=== PATIENT | male | born 1995 | race Caucasian/White ===

== ENCOUNTER 2019-11-22 19:08 | Emergency (ER) | payer OTHER ==
--- NOTE | 2019-11-22 19:23 | ER Document Report ---
ED Medical Screen (RME) - General Chief Complaint: Arm Injury Stated Complaint: RIGHT ARM LACERATION Time Seen by Provider: 11/22/19 19:20 Mode of Arrival: Wheelchair Information source: Patient Notes: 24-year-old male presented to ED for for large laceration to the right forearm after he punched a glass wall. He will be sent x-ray to ensure there is no glass in the wound and then he will be seen by another provider to suture his laceration. Is alert oriented respirations regular nonlabored speaking in full sentences. He refused Tylenol or any other medications at this time. 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 I have greeted and performed a rapid initial assessment of this patient. A comprehensive ED assessment and evaluation of the patient, analysis of test results and completion of medical decision making process will be conducted by an additional ED providers.
--- NOTE | 2019-11-22 20:04 | RADIOLOGY REPORT (SQ) ---
EXAM DESCRIPTION: FOREARM RIGHT IMAGES COMPLETED DATE/TIME: 11/22/2019 6:48 pm REASON FOR STUDY: Laceration after punching glass wall COMPARISON: None. NUMBER OF VIEWS: Two views. TECHNIQUE: Two radiographic images acquired of the right forearm, including elbow and wrist in at le ast one projection. LIMITATIONS: None. FINDINGS: MINERALIZATION: Normal. BONES: No acute fracture. No worrisome bone lesions. SOFT TISSUES: There are multiple rectangular lucencies measuring up to 9 mm in size within the subcut aneous soft tissues. Laceration over the posterior forearm. OTHER: No other significant finding. IMPRESSION: Multiple subcutaneous foreign bodies, probably glass fragments. Laceration over the pos terior forearm. No underlying fracture. TECHNICAL DOCUMENTATION: JOB ID: [id number] 2010 [employer]- All Rights Reserved Reading location - IP/workstation name: [email or web address]
[2019-11-22] MEDS ORDERED: LIDOCAINE 1% INJ-PF (10 MG/ML) 30 ML SDV INJ ONE (22:15)
--- NOTE | 2019-11-22 22:26 | ER Document Report ---
ED Extremity Problem, Upper - General Chief Complaint: Arm Injury Stated Complaint: RIGHT ARM LACERATION Time Seen by Provider: 11/22/19 19:20 Primary Care Provider: MISHA ALLEN PA [Primary Care Provider] - 11/24/19 Mode of Arrival: Wheelchair Information source: Patient Notes: 24-year-old male presented to ED for large laceration to the right forearm. He states he punched a glass wall. He stated that his tetanus is up-to-date. He is alert oriented respirations regular nonlabored speaking in full sentences. He states the pain was not such that he needed any medication at this time. He is active duty . - HPI Patient complains to provider of: Injury, Pain - Laceration, Right, Forearm Onset: Just prior to arrival Recent injury: Yes Quality of pain: Sharp Severity of pain: Mild Pain Level: 1 Context: Other - Laceration Associated symptoms: None Exacerbated by: Movement Relieved by: Nothing Similar symptoms previously: Yes Recently seen / treated by doctor: No - Related Data Allergies/Adverse Reactions: No Known Allergies Allergy (Verified 11/22/19 19:24) Past Medical History - General Information source: Patient - Social History Smoking Status: Never Smoker Chew tobacco use (# tins/day): No Frequency of alcohol use: Social Drug Abuse: None Occupation: Duty Lives with: Spouse/Significant other Family History: Reviewed & Not Pertinent Patient has homicidal ideation: No - Past Medical History Cardiac Medical History: Reports: None Pulmonary Medical History: Reports: None EENT Medical History: Reports: None Neurological Medical History: Reports: None Endocrine Medical History: Reports: None Renal/ Medical History: Reports: None Malignancy Medical History: Reports None GI Medical History: Reports: None Musculoskeletal Medical History: Reports None Skin Medical History: Reports None Psychiatric Medical History: Reports: None Traumatic Medical History: Reports: None Infectious Medical History: Reports: None Surgical Hx: Negative Past Surgical History: Reports: None - Immunizations Immunizations up to date: Yes Hx Diphtheria, Pertussis, Tetanus Vaccination: Yes Review of Systems - Review of Systems Constitutional: No symptoms reported EENT: No symptoms reported Cardiovascular: No symptoms reported Respiratory: No symptoms reported Gastrointestinal: No symptoms reported Genitourinary: No symptoms reported Male Genitourinary: No symptoms reported Musculoskeletal: No symptoms reported Skin: Other - Laceration right forearm Hematologic/Lymphatic: No symptoms reported Neurological/Psychological: No symptoms reported Physical Exam - Vital signs Vitals: Temp 98.3 F 11/22/19 19:13 Interpretation: Normal - General General appearance: Appears well, Alert - HEENT Head: Normocephalic, Atraumatic Eyes: Normal Pupils: PERRL - Respiratory Respiratory status: No respiratory distress Chest status: Nontender Breath sounds: Normal Chest palpation: Normal - Cardiovascular Rhythm: Regular Heart sounds: Normal auscultation Murmur: No - Abdominal Inspection: Normal Distension: No distension Bowel sounds: Normal Tenderness: Nontender Organomegaly: No organomegaly - Back Back: Normal, Nontender - Extremities General upper extremity: Normal color, Normal ROM, Normal temperature General lower extremity: Normal inspection, Nontender, Normal color, Normal ROM, Normal temperature, Normal weight bearing. No: Xavi's sign Forearm: Laceration - Neurological Neuro grossly intact: Yes Cognition: Normal Orientation: AAOx4 [place] Coma Scale Eye Opening: Spontaneous Debbie Coma Scale Verbal: Oriented [place] Coma Scale Motor: Obeys Commands [place]aks Coma Scale Total: 15 Speech: Normal Motor strength normal: LUE, RUE, LLE, RLE Sensory: Normal - Psychological Associated symptoms: Normal affect, Normal mood - Skin Skin Temperature: Warm Skin Moisture: Dry Skin Color: Normal Skin irregularity: Laceration - Forearm right Location of irregularity: Extremities Course - Vital Signs Vital signs: Temp Pulse Resp BP Pulse Ox 97.5 F 77 16 101/54 L 100 11/23/19 02:53 11/23/19 02:53 11/23/19 02:53 11/23/19 02:53 11/23/19 02:53 - Diagnostic Test Radiology reviewed: Image reviewed, Reports reviewed Procedures - Laceration/Wound Repair Right forarm Time completed: 01:36 Wound length (cm): 4 Wound's Depth, Shape: Into muscle, Irregular, Flap Laceration pre-procedure: Sterile PPE donned, Sterile drapes applied, Shur-Clens applied Anesthetic type: 1% Lidocaine Volume Anesthetic (mLs): 20 - Total number of 3 different occasions Wound explored: Contaminated, Foreign body removed - 7 pieces of glass removed still says 2 small pieces left Irrigated w/ Saline (mLs): 1,000 Wound Repaired With: Sutures Suture Size/Type: 4:0, Ethilon Number of Sutures: 24 Layer Closure?: No Post-procedure wound care: Sterile dressing applied Post-procedure NV exam normal: Yes Complications: Yes - There are multiple other small please return to your primary doctor, the ED Notes: 11/23/19 01:44 Patient when his hand through a glass door there were numerous lacerations that were cleaned 12 of the larger sutured shut. 24 total sutures. 7 pieces of glass removed up to 9 mm in length. The final x-ray states there is still 2 small pieces of glass in the arm. Patient has been informed. I have consulted with Dr. Daugherty removed to the pieces of glass from the arm. Patient will be started on doxycycline and [place] and instructed to follow-up with his doctor. Discharge - Discharge Clinical Impression: Laceration of right hand Qualifiers: Encounter type: initial encounter Foreign body presence: without foreign body Qualified Code(s): S61.411A - Laceration without foreign body of right hand, initial encounter Laceration of right forearm with foreign body Qualifiers: Encounter type: initial encounter Qualified Code(s): S51.821A - Laceration with foreign body of right forearm, initial encounter Condition: Stable Disposition: HOME, SELF-CARE Additional Instructions: LACERATION CARE: Your laceration has been sutured to keep the skin edges aligned during healing. The time of suture removal depends on the nature and location of your cut. Please follow the care instructions the doctor has outlined for you and return for further care, according to the schedule you've been given. Keep the wound and dressing clean. Unless you were told otherwise, you may shower daily, blotting the wound dry with a clean, unused towel. At other times, If the dressing gets wet or blood soaked, remove it and blot the wound dry, then reapply a new dressing. Unless you were instructed otherwise, dressings should be changed at least daily. If any signs of infection occur (swelling, redness, drainage, increasing tenderness, red streaks, tender lumps in the armpit or groin above the laceration, or fever), see the doctor immediately. SOAP CLEANSING: Gently wash the wound daily using a mild soap (like Ivory, Phisoderm, Neutrogena). Use warm water, rubbing gently until all debris, ooze, and crusting have been washed from the wound. Allow to dry briefly (about 10 minutes) after cleaning. Repeat this cleansing at least three times a day for the first two days and then once or twice a day. ANTIBIOTIC OINTMENT PROTECTION: Your wounds are such that dressing them is not practical or optional. After cleansing, you should apply a thin coating of antibiotic ointment (Bacitracin, not Neosporin) to the wounds at least three times daily. This lessens infection risk, and may decrease the amount of scarring. Use a q-tip or dull butter knife, not your finger, to apply this ointment. Any debris or ooze which builds up in the ointment should be gently rubbed off with a sterile gauze pad. Harder crusting may need to be gently scrubbed off with a clean wash cloth with soap and warm water, perhaps applying a warm, wet wash cloth to the wound for ten minutes first. Development of redness, severe itching, or blistering may mean allergy to the ointment. See the doctor. Doxycycline Doxycycline (Vibramycin, Doryx) is an antibiotic of the tetracycline family. This type of drug is useful for infections of the respiratory tract and genital tract, and is sometimes used for intestinal infections. Unlike most tetracyclines, doxycycline can be taken with food. It is longer acting, and (usually) less prone to side effects than regular tetracycline. Tetracycline antibiotics can stain immature teeth and SHOULD NOT BE TAKEN BY CHILDREN, NURSING MOTHERS, OR WOMEN. Tetracyclines can make you more prone to sunburn. Abdominal cramping, nausea, and diarrhea are occasional side effects. Women may experience vaginal yeast infections. Call the doctor at once if you develop hives, itching, shortness of breath, or lightheadedness. ORAL NARCOTIC MEDICATION: You have been given a [employer] dispense pack for pain control. This medication is a narcotic. It's best taken with food, as nausea can result if taken on an empty stomach. Don't operate machinery or drive within six hours of taking this medication. Do not combine this medicine with alcohol, or with any medication which can cause sedation (such as cold tablets or sleeping pills) unless you get permission from the physician. Narcotics tend to cause constipation. If possible, drink plenty of fluids and eat a diet high in fiber and fruits. These follow-up with your [facility] on Sunday. There are multiple lacerations to your hand and forearm. These need to be monitored by your doctor. The doxycycline you are on can cause sunburn. You will need to wear sunscreen as long as you are taking the medications in 3 days after. Please follow-up with your doctor to ensure none of these get infected. There are still 2 small foreign bodies in your right forearm FOLLOW-UP CARE: Please return in _3____ days for an infection check and dressing change. Your sutures should be removed in __10___ days. To facilitate a timely removal of your sutures, you may return to the Emergency Department at [facility]. You do not need to call for an appointment, but the best time to come in for suture removal is early in the morning. If you have been referred to another physician for follow-up care, call that physicians office for an appointment as you were instructed. If you experience a significant change in your laceration, or if you are concerned there may be an infection (swelling, redness, drainage, increasing tenderness, red streaks, tender lumps in the armpit or groin above the laceration, or fever), return to the Emergency Department immediately re-evaluation. Prescriptions: Doxycycline Monohydrate 100 mg PO BID #20 capsule Referrals: MISHA ALLEN PA [Primary Care Provider] - 11/24/19
--- NOTE | 2019-11-22 23:58 | RADIOLOGY REPORT (SQ) ---
EXAM DESCRIPTION: CLINICAL HISTORY: 24 years Male glass in arm COMPARISON: None. TECHNIQUE: RIGHT forearm, two views FINDINGS: No acute fractures or dislocations are identified. No osseous destructive lesions. There is a small square foreign object along the distal aspect of the ulna along the volar and ulnar surface of the arm consistent with glass fragment. This measures 5 mm. A tiny adjacent sliver of glass is seen measuring less than 2 mm. There is soft tissue swelling. IMPRESSION: Two small foreign objects consistent with glass in the ulnar and volar surface of the forearm
--- NOTE | 2019-11-23 01:29 | RADIOLOGY REPORT (SQ) ---
EXAM DESCRIPTION: XR FOREARM 2 VIEWS COMPLETED DATE/TME: 11/23/2019 00:25 CLINICAL HISTORY: 24 years, Male, check for foreign body, portable please COMPARISON: Right forearm x-ray from 11:48 PM 11/22/2019 NUMBER OF VIEWS: 2 TECHNIQUE: 2 views of the right forearm LIMITATIONS: None. FINDINGS: Interval removal of the larger soft tissue foreign bodies. Soft tissue injury with soft tissue swelling is again noted. There is a residual punctate approximately 2 mm foreign body in the dorsal soft tissues of the distal forearm. Punctate 1 to 2 mm residual superficial foreign bodies in the distal ulnar soft tissues as well. IMPRESSION: Punctate residual foreign bodies, as above copyright 2010 [employer]- All Rights Reserved
[2019-11-23] MEDS ORDERED: BACITRACIN ZINC OINTMENT 15 GM TP ONE (01:55)
[2019-11-23] MEDS ORDERED: BACITRACIN ZINC OINTMENT 15 GM ONE (02:36)
[2019-11-23 02:54] VITALS: BP 101/54
== END 2019-11-23 02:53 | disposition home or self-care (01) ==
LOC: ER 19:08
PROC: 0HQDXZZ Repair Right Lower Arm Skin, External Approach (ICD-10-PCS; principal; 2019-11-22)
DX: S51.821A Laceration with foreign body of right forearm, initial encounter (principal); S61.411A Laceration without foreign body of right hand, initial encounter; M79.631 Pain in right forearm; W25.XXXA Contact with sharp glass, initial encounter
CPT/HCPCS: 99283; 73090 ×2; 12032; J3490